=== PATIENT | female | born 1940 | race Caucasian/White ===

== ENCOUNTER 2017-12-18 08:51 | Outpatient (CLI) | payer MEDICARE | END 2017-12-18 08:52 | disposition EMS.NT | LOC: EMS 08:51 | PROVIDERS: ATTEND Surgery | DX: R03.1 Nonspecific low blood-pressure reading (principal) ==

== ENCOUNTER 2018-04-18 18:21 | Emergency (ER) | payer MEDICARE ==
[2018-04-18 18:44] VITALS: BP 126/60
[2018-04-18] MEDS ORDERED: BUFFERED LIDOCAINE 10 ML SYRINGE SUBQ ONE (18:56)
[2018-04-18] MEDS ORDERED: TETANUS/DIPHTHERIA/PERTUSSIS 0.5 ML SYRINGE IM ONE (19:15)
--- NOTE | 2018-04-18 19:15 | ED Physician Documentation ---
PD HPI UPPER EXT INJURY - Stated complaint Stated Complaint: FINGER PX - Chief complaint Chief Complaint: Laceration - History obtained from History obtained from: Patient - History of Present Illness Location: Left (77-year-old woman with unknown tetanus status was cleaning at home and got a splinter in the distal left pinky finger. Not a piece of glass in contrast the nurse's notes.) Review of Systems Constitutional: reports: Reviewed and negative Cardiac: reports: Reviewed and negative Respiratory: reports: Reviewed and negative PD PAST MEDICAL HISTORY - Past Medical History Cardiovascular: Hypertension Psych: Bipolar disorder Musculoskeletal: Other - Past Surgical History Past Surgical History: Yes HEENT: Tonsil/Adenoidectomy - Present Medications Home Medications: Ambulatory Orders Medication Instructions Recorded Confirmed Lisinopril 20 mg PO DAILY 10/11/13 01/25/18 - Allergies Allergies/Adverse Reactions: Allergies Allergy/AdvReac Type Severity Reaction Status Date / Time Sulfa (Sulfonamide Allergy Unknown Rash Verified 04/18/18 18:45 Antibiotics) promethazine HCl * Allergy i get Verified 04/18/18 18:45 [From Phenergan] maudlin codeine AdvReac Unknown Hallucinati Verified 04/18/18 18:45 ons erythromycin base AdvReac Unknown Nausea Verified 04/18/18 18:45 [Erythromycin Base] tetracycline AdvReac Unknown Cramps Verified 04/18/18 18:45 sulfisoxazole AdvReac Teeth pain Verified 04/18/18 18:45 [From Gantrisin] and urine green sulfisoxazole acetyl * AdvReac Unknown Verified 04/18/18 18:45 [From Gantrisin] - Social History Does the pt smoke?: No Smoking Status: Never smoker Does the pt drink ETOH?: No Does the pt have substance abuse?: No - Immunizations Immunizations are current?: No - POLST Patient has POLST: No PD ED PE NORMAL - Vitals Vital signs reviewed: Yes - General General: Alert and oriented X 3, No acute distress - Extremities Extremities: Other (In the distal pulp of the left fifth finger there is a palpable splinter that is tender.) - Neuro Neuro: Alert and oriented X 3, Normal speech Results - Vitals Vitals: Vital Signs - 24 hr 04/18/18 18:40 Temperature 37 C Heart Rate 73 Respiratory 14 Rate Blood Pressure 126/60 O2 Saturation 96 Oxygen O2 Source Room air Procedures - FB removal FB location: Subcutaneous FB removal preparation: Local anesthesia-specify (Left fifth finger was anesthetized with a digital block with buffered lidocaine, then sterilely prepped and draped. A tiny incision was made over the pulp and the splinter easily identified and removed using forceps I think in its entirety.) PD MEDICAL DECISION MAKING - Sepsis Event Vital Signs: Vital Signs - 24 hr 04/18/18 18:40 Temperature 37 C Heart Rate 73 Respiratory 14 Rate Blood Pressure 126/60 O2 Saturation 96 Oxygen O2 Source Room air Departure - Departure Disposition: 01 Home, Self Care Clinical Impression: Open wound with foreign body Condition: Good Record reviewed to determine appropriate education?: Yes Instructions: ED Foreign Body Splinter Removal
== END 2018-04-18 19:52 | disposition home or self-care (01) ==
LOC: ED 18:21
DX: S60.457A Superficial foreign body of left little finger, initial encounter (principal); W45.8XXA Other foreign body or object entering through skin, initial encounter; Y93.E9 Activity, other interior property and clothing maintenance; Y92.009 Unspecified place in unspecified non-institutional (private) residence as the place of occurrence of the external cause; Z23 Encounter for immunization; I10 Essential (primary) hypertension
CPT/HCPCS: 10120; 90471; 99282; 99283

== ENCOUNTER 2020-03-15 12:11 | Outpatient (CLI) | payer MEDICARE ==
--- NOTE | 2020-03-15 12:34 | XRAY Report ---
PROCEDURE: Hand 3 View LT INDICATIONS: L HAND PX AFTER FALL TECHNIQUE: 3 views of the hand(s) acquired. COMPARISON: None FINDINGS: Bones: No fractures or dislocations. No suspicious bony lesions. Soft tissues: No suspicious soft tissue calcifications. IMPRESSION: No acute left hand fracture or dislocation. Reviewed by: Ajay Dao MD on 03/15/2020 11:33 AM KATHY Approved by: Ajay Dao MD on 03/15/2020 11:33 AM [place] Station ID: [id number]
== END 2020-03-15 12:12 | disposition home or self-care (01) ==
LOC: DI 12:11
PROVIDERS: ATTEND Internal Medicine
DX: M79.642 Pain in left hand (principal)

== ENCOUNTER 2020-04-15 09:52 | Outpatient (CLI) | payer MEDICARE ==
[2020-04-15] MEDS ORDERED: IOVERSOL 320 50 ML VIAL ONE (10:10)
[2020-04-15] MEDS ORDERED: IOVERSOL 320 100 ML VIAL IVP ONE (10:10)
--- NOTE | 2020-04-15 14:13 | CT Report ---
PROCEDURE: Abdomen/Pelvis W INDICATIONS: MALIGNANT NEOPLASM OF ASCENDING COLON CONTRAST: IV CONTRAST: Optiray 320 ml: 100 PO CONTRAST: Optiray 320 ml50 TECHNIQUE: After the administration of contrast, 5 mm thick sections acquired from the diaphragms to the sym physis. 5 mm thick coronal and sagittal reformats were acquired. For radiation dose reduction, the following was used: automated exposure control, adjustment of mA and/or kV according to patient size . COMPARISON: None. FINDINGS: Image quality: Excellent. ABDOMEN: Lung bases: Lung bases are clear. Heart size is normal. There is a small diaphragmatic defect at t he posterior right hemidiaphragm allowing a small amount of fat from the adjacent retroperitoneum of the abdomen to extend into the inferior aspect of the right pleural space, without evidence of incarc eration or strangulation. Solid organs: Liver and spleen are normal in size and enhancement. There are several scattered hepa tic water density simple cysts. No solid mass lesion within the liver is found. Gallbladder appears n ormal Biliary system is non dilated. Pancreas enhances normally. No adrenal nodules. Kidneys demo nstrate normal size and enhancement, without hydronephrosis. Peritoneum and bowel: Bowel loops demonstrate normal wall thickness and caliber. No free fluid or a ir. Nodes and vessels: No retroperitoneal or mesenteric adenopathy by size criteria. Aorta and inferior vena cava are normal in size. Miscellaneous: No ventral hernias. PELVIS: Genitourinary: Bladder wall thickness is normal. Miscellaneous: No inguinal hernias or adenopathy. Bones: No suspicious bony lesions. No vertebral body compression fractures. IMPRESSION: No evidence of metastatic disease. Several small water density hepatic cysts are inciden tally noted. The colonic neoplasm is reported to be centered within the ascending colon, but cannot b e identified in this area by CT scanning. No regional or distant adenopathy is found. Reviewed by: Raj Simental MD on 04/15/2020 2:12 PM PDT Approved by: Raj Simental MD on 04/15/2020 2:12 PM PDT Station ID: [id number]
--- NOTE | 2020-04-15 14:16 | CT Report ---
PROCEDURE: CHEST W INDICATIONS: MALIGNANT NEOPLASM OF ASCENDING COLON CONTRAST: IV CONTRAST: Optiray 320 ml: 100 PO CONTRAST: Optiray 320 ml50 TECHNIQUE: After the administration of intravenous contrast, 5 mm thick sections acquired from the pulmonary api shantel to the posterior costophrenic angles. 7 mm thick coronal MIP reformats were acquired. For radia tion dose reduction, the following was used: automated exposure control, adjustment of mA and/or kV according to patient size. COMPARISON: None. FINDINGS: Image quality: Excellent. Lungs and pleura: No acute air space opacities. No pleural effusions or pneumothorax. Central and peripheral airways are patent and normal in caliber. Mediastinum: Heart size is normal. No pericardial effusion. No mediastinal or hilar adenopathy by size criteria. Thoracic aorta and central pulmonary arteries are normal in size. Esophagus is mary lou l in caliber. No hiatal hernia. Bones and chest wall: No suspicious bony lesions. No vertebral body compression fractures. No axil stacy or supraclavicular adenopathy by size criteria. Thyroid gland appears normal. Abdomen: Visualized upper abdominal solid organs appear normal. Upper abdominal bowel loops are nor mal in caliber. IMPRESSION: No sign of metastatic disease related to reported ascending: Malignant neoplasm. No adenopathy is see n. Please also refer to dedicated abdominal/pelvic CT report from same day. Reviewed by: Raj Simental MD on 04/15/2020 2:15 PM PDT Approved by: Raj Simental MD on 04/15/2020 2:15 PM PDT Station ID: [id number]
[2020-04-15] MEDS: IOVERSOL 320 100 ML VIAL IVP ONE (16:58)
[2020-04-15] MEDS: IOVERSOL 320 50 ML VIAL PO ONE (16:58)
== END 2020-04-15 09:53 | disposition home or self-care (01) ==
LOC: DI 09:52
PROVIDERS: ATTEND Internal Medicine Hematology & Oncology
DX: K76.89 Other specified diseases of liver (principal)
CPT/HCPCS: 71260; 74177; Q9967

== ENCOUNTER 2020-09-27 16:25 | Emergency (ER) | payer MEDICARE ==
[2020-09-27] MEDS ORDERED: SODIUM CHLORIDE 0.9% 1,000 ML IV STA (16:38)
--- NOTE | 2020-09-27 16:40 | ED Physician Documentation ---
PD HPI ABD PAIN - Stated complaint Stated Complaint: ABD/PELVIC PX - Chief complaint Chief Complaint: Abd Pain - History obtained from History obtained from: Patient - Additional information Additional information: This 79-year-old woman has a history of extensive abdominal surgeries, she had a penetrating injury with a steak at age 9, has had sterilization, fibroids removed, localized colon cancer removed, and several hernia repairs. For the last week and a half she has had a terrible productive cough and today she feels profoundly fatigued and has pelvic pain worse with bending and twisting. She has loose stools and urinary frequency but she was sent from the office where reportedly a urinalysis was done and normal. She denies fevers or nausea. 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 It is wearing her out. I offered to have a public health social worker talk with her about respite care but she did not think that would be helpful. Review of Systems Ten Systems: 10 systems reviewed and negative Constitutional: denies: Fever, Chills Cardiac: denies: Chest pain / pressure, Palpitations Respiratory: reports: Cough. denies: Dyspnea PD PAST MEDICAL HISTORY - Past Medical History Cardiovascular: Hypertension Psych: Bipolar disorder Musculoskeletal: Other - Past Surgical History Past Surgical History: Yes HEENT: Tonsil/Adenoidectomy - Present Medications Home Medications: Ambulatory Orders Medication Instructions Recorded Confirmed Loratadine 5 mg PO DAILY 05/17/18 09/27/20 - Allergies Allergies/Adverse Reactions: Allergies Allergy/AdvReac Type Severity Reaction Status Date / Time Sulfa (Sulfonamide Allergy Unknown Rash Verified 09/27/20 16:59 Antibiotics) promethazine HCl * Allergy i get Verified 09/27/20 16:59 [From Phenergan] maudlin codeine AdvReac Unknown Hallucinati Verified 09/27/20 16:59 ons erythromycin base AdvReac Unknown Nausea Verified 09/27/20 16:59 [Erythromycin Base] tetracycline AdvReac Unknown Cramps Verified 09/27/20 16:59 sulfisoxazole AdvReac Teeth pain Verified 09/27/20 16:59 [From Gantrisin] and urine green sulfisoxazole acetyl * AdvReac Unknown Verified 09/27/20 16:59 [From Gantrisin] - Social History Does the pt smoke?: No Smoking Status: Never smoker Does the pt drink ETOH?: No Does the pt have substance abuse?: No - Immunizations Immunizations are current?: No - POLST Patient has POLST: No PD ED PE NORMAL - Vitals Vital signs reviewed: Yes - General General: Alert and oriented X 3, No acute distress - HEENT HEENT: PERRL, EOMI - Neck Neck: Supple, no meningeal sign, No bony TTP - Cardiac Cardiac: RRR, No murmur - Respiratory Respiratory: No respiratory distress, Clear bilaterally - Abdomen Abdomen: Other (Moderate suprapubic tenderness without surgical signs, soft.) - Back Back: No CVA TTP, No spinal TTP - Derm Derm: Normal color, Warm and dry - Extremities Extremities: No edema, No calf tenderness / cord - Neuro Neuro: Alert and oriented X 3, Normal speech Results - Vitals Vitals: Vital Signs - 24 hr 09/27/20 09/27/20 16:30 16:55 Temperature 36.6 C Heart Rate 65 63 Respiratory 16 16 Rate Blood Pressure 170/87 H 174/87 H O2 Saturation 97 96 Oxygen O2 Source Nasal cannula - Labs Labs: Laboratory Tests 09/27/20 09/27/20 09/27/20 16:46 16:52 16:52 WBC 8.1 RBC 4.43 Hgb 14.5 Hct 43.2 MCV 97.5 MCH 32.7 H MCHC 33.6 RDW 13.0 Plt Count 307 MPV 10.2 Neut # (Auto) 4.8 Lymph # (Auto) 2.5 Arroyo # (Auto) 0.5 Eos # (Auto) 0.2 Baso # (Auto) 0.0 Absolute Nucleated RBC 0.00 Nucleated RBC % 0.0 Sodium 139 Potassium 4.1 Chloride 100 L Carbon Dioxide 27 Anion Gap 12.0 BUN 21 H Creatinine 0.8 Estimated GFR (MDRD) 69 L Glucose 94 Calcium 9.3 Total Bilirubin 0.5 AST 24 ALT 20 Alkaline Phosphatase 70 Total Protein 7.2 Albumin 4.2 Globulin 3.0 Albumin/Globulin Ratio 1.4 Lipase 26 Urine Color YELLOW Urine Clarity CLEAR Urine pH 6.5 Ur Specific [place] 1.010 Urine Protein NEGATIVE Urine Glucose (UA) NEGATIVE Urine Ketones NEGATIVE Urine Occult Blood TRACE-INTA Urine Nitrite NEGATIVE Urine Bilirubin NEGATIVE Urine Urobilinogen 0.2 (NORMAL) Ur Leukocyte Esterase TRACE H Urine RBC 0-5 Urine WBC 0-3 Ur Squamous Epith Cells MOD Squamous H Urine Bacteria Rare Ur Microscopic Review INDICATED Urine Culture Comments NOT INDICATED PD MEDICAL DECISION MAKING - ED course ED course: 79-year-old presents with pelvic pain, also a cough. Chest x-ray showed old granulomatous disease, nothing acute. CT of the belly demonstrates mild uncomplicated distal descending diverticulitis. I discussed the current AGA feliciano delines with the patient and she declined antibiotics. Departure - Departure Disposition: Home, Self Care Clinical Impression: Diverticulitis of gastrointestinal tract Condition: Good Record reviewed to determine appropriate education?: Yes Instructions: ED Diverticulitis, Diet Low Residue Comments: Return if you worsen, follow-up with your physician Wednesday for recheck.
[2020-09-27] MEDS ORDERED: IOVERSOL 320 100 ML VIAL IVP ONE ×2 (16:58→17:54)
[2020-09-27 17:00] LABS: BASOPHILS % (AUTO) 0.5 %; EOSINOPHILS # (AUTO) 0.2 10^3/uL (0.0-0.7); HGB - HEMOGLOBIN 14.5 g/dL (12.0-16.0); LYMPHOCYTES # (AUTO) 2.5 10^3/uL (1.5-3.5); LYMPHOCYTES % (AUTO) 30.8 %; MEAN CORPUSCULAR HEMOGLOBIN 32.7 pg (27.0-31.0); MEAN CORPUSCULAR HGB CONC 33.6 g/dL (32.0-36.0); MEAN CORPUSCULAR VOLUME 97.5 fL (81.0-99.0); MEAN PLATELET VOLUME 10.2 fL (7.9-10.8); MONOCYTES # (AUTO) 0.5 10^3/uL (0.0-1.0); MONOCYTES % (AUTO) 6.4 %; NEUTROPHILS # (AUTO) 4.8 10^3/uL (1.5-6.6); NEUTROPHILS % (AUTO) 59.9 %; PLT - PLATELET COUNT 307 10^3/uL (130-450); RED BLOOD COUNT 4.43 10^6/uL (4.20-5.40); WHITE BLOOD COUNT 8.1 x10^3/uL (4.8-10.8)
[2020-09-27 17:15] LABS: ALBUMIN 4.2 g/dL (3.2-5.5); ALBUMIN/GLOBULIN RATIO 1.4 (1.0-2.2); BILIRUBIN,TOTAL 0.5 mg/dL (0.2-1.0); CALCIUM 9.3 mg/dL (8.5-10.3); CREATININE 0.8 mg/dL (0.4-1.0); TOTAL PROTEIN 7.2 g/dL (6.7-8.2)
[2020-09-27 17:46] LABS: BILIRUBIN,URINE NEGATIVE (NEGATIVE); GLUCOSE, URINE (UA) NEGATIVE (NEGATIVE); KETONES,URINE (UA) NEGATIVE (NEGATIVE); LEUKOCYTE ESTERASE, URINE TRACE (NEGATIVE); NITRITE,URINE NEGATIVE (NEGATIVE); OCCULT BLOOD,URINE TRACE-INTA (NEGATIVE); PH,URINE 6.5 PH (5.0-7.5); PROTEIN,URINE NEGATIVE (NEGATIVE); UROBILINOGEN,URINE 0.2 (NORMAL) E.U./dL (NORMAL)
[2020-09-27 17:47] LABS: CLARITY,URINE CLEAR (CLEAR)
[2020-09-27 18:00] LABS: BACTERIA,URINE Rare /HPF (None Seen); RBC,URINE 0-5 /HPF (0-5); SQUAMOUS EPITHELIAL CELL,UR MOD Squamous (<= Few)
--- NOTE | 2020-09-27 18:08 | CT Report ---
PROCEDURE: Abdomen/Pelvis W INDICATIONS: LLQ Abdominal pain, diverticulitis suspected CONTRAST: IV CONTRAST: Optiray 320 ml: 100 PO CONTRAST: *NO PO CONTRAST TECHNIQUE: After the administration of IV and oral contrast, 5 mm thick sections acquired from the diaphragms to the symphysis. 5 mm thick coronal and sagittal reformats were acquired. For radiation dose reducti on, the following was used: automated exposure control, adjustment of mA and/or kV according to regan ent size. COMPARISON: 04/15/2020 FINDINGS: Image quality: Excellent. ABDOMEN: Lung bases: Lung bases demonstrate mild bibasilar atelectasis.. Partially imaged calcified right hi lar granuloma. Coarse right lower lobe calcification consistent with granulomatous change. Heart size is normal. Coarse mitral annular calcification. Solid organs: Liver and spleen are normal in size and enhancement. Occasional hepatic cysts are pre sent. Several scattered calcified granulomas in the spleen. Gallbladder is partially decompressed. B iliary system is non dilated. Pancreas enhances normally. No adrenal nodules. Kidneys demonstrate normal size and enhancement, without hydronephrosis. Peritoneum and bowel: There is wall thickening, spasm, and several diverticula present in the sigmoi d colon. Numerous diverticula are also seen in the distal descending colon. There are only mild peric olonic inflammatory changes and no extraluminal gas. Ileocolonic anastomosis in the right upper quadr ant. Bowel loops otherwise have normal wall thickness and caliber. No free fluid or air. Nodes and vessels: No retroperitoneal or mesenteric adenopathy by size criteria. Aorta and inferior vena cava are normal in size. Coarse calcification at the branch artery origins of the abdominal ao rta. Miscellaneous: No ventral hernias. PELVIS: Genitourinary: Bladder wall thickness is normal. Uterus and ovaries are normal. Miscellaneous: No inguinal hernias or adenopathy. Bones: No suspicious bony lesions. Moderate left and mild right hip degenerative change. Degeneratio n at the pubic symphysis. No vertebral body compression fractures. IMPRESSION: 1. Mild, uncomplicated distal descending and proximal sigmoid colon diverticulitis. 2. Interval right hemicolectomy. Reviewed by: Donna Arboleda MD on 09/27/2020 6:06 PM PST Approved by: Donna Arboleda MD on 09/27/2020 6:06 PM PST Station ID: [id number]
--- NOTE | 2020-09-27 18:11 | XRAY Report ---
PROCEDURE: Chest 2 View X-Ray INDICATIONS: cough TECHNIQUE: 2 view(s) of the chest. COMPARISON: None. FINDINGS: Surgical changes and devices: None. Lungs and pleura: No pleural effusions or pneumothorax. Coarse calcified right midlung granuloma. L ungs are otherwise clear. Mediastinum: Mediastinal contours are normal. Calcified right hilar lymph nodes. Heart size is mary lou l. Bones and chest wall: No suspicious bony abnormalities. Soft tissues appear unremarkable. IMPRESSION: 1. No acute process. 2. Evidence of remote granulomatous disease. Reviewed by: Donna Arboleda MD on 09/27/2020 6:10 PM PST Approved by: Donna Arboleda MD on 09/27/2020 6:10 PM PST Station ID: [id number]
[2020-09-27 18:32] VITALS: BP 180/80
== END 2020-09-27 19:02 | disposition home or self-care (01) ==
LOC: ED 16:25
DX: K57.32 Diverticulitis of large intestine without perforation or abscess without bleeding (principal)
CPT/HCPCS: 36415; 71046; 74177; 80053; 81001; 83690; 85025; 99284; Q9967; 81003; 87086

== ENCOUNTER 2021-03-14 10:56 | Day surgery (SDC) | payer MEDICARE ==
[2021-03-14] MEDS ORDERED: LACTATED RINGERS 1,000 ML IV ONE ×2 (11:14→13:28)
--- NOTE | 2021-03-14 12:46 | HISTORY & PHYSICAL EXAMINATION ---
Chief Complaint - Chief Complaint Chief Complaint: History of colon cancer History of Present Illness - History Obtained From Records Reviewed: yes History obtained from: pt Exam Limitations: none - History of Present Illness HPI Comment/Other: History of right colectomy for colon cancer several years ago. Here for surveillance colonoscopy. History - Past Medical History Cardiovascular: reports: Hypertension, [place] Respiratory: reports: Asthma Endocrine/Autoimmune: reports: None GI: reports: GERD, Diverticulitis, Other : reports: None HEENT: reports: Chronic vision loss, Glaucoma, Chronic hearing loss Psych: reports: Anxiety Musculoskeletal: reports: Osteoarthritis Derm: reports: None MRSA Hx?: No - Past Surgical History General: reports: Bowel surgery, Hiatal hernia repair HEENT: reports: Tonsil/Adenoidectomy - POLST Patient has POLST: No Meds/Allgy - Home Medications Home Medications: Ambulatory Orders Medication Instructions Recorded Confirmed Loratadine 10 mg PO DAILY 05/17/18 03/14/21 Lisinopril [Zestril] 5 mg PO DAILY 03/14/21 03/14/21 - Allergies Allergies/Adverse Reactions: Allergies Allergy/AdvReac Type Severity Reaction Status Date / Time Sulfa (Sulfonamide Allergy Unknown Rash Verified 03/14/21 11:39 Antibiotics) promethazine HCl * Allergy i get Verified 03/14/21 11:39 [From Phenergan] maudlin codeine AdvReac Unknown Hallucinati Verified 03/14/21 11:39 ons erythromycin base AdvReac Unknown Nausea Verified 03/14/21 11:39 [Erythromycin Base] tetracycline AdvReac Unknown Cramps Verified 03/14/21 11:39 sulfisoxazole AdvReac Teeth pain Verified 03/14/21 11:39 [From Gantrisin] and urine green sulfisoxazole acetyl * AdvReac Unknown Verified 03/14/21 11:39 [From Gantrisin] Review of Systems - Other Findings Other Findings: 10 pt ros as above otherwise unremarkable Exam - Vital Signs Reviewed Vital Signs: Yes Vital Signs: Vital Signs x48h Temp Pulse Resp BP Pulse Ox 03/14/21 11:15 36.4 C L 64 16 140/77 H 96 - Physical Exam General Appearance: positive: No acute distress, Alert Eyes Bilateral: positive: PERRL, EOMI ENT: positive: No signs of dehydration Neck: positive: No JVD Respiratory: positive: No respiratory distress, Breath sounds nml Cardiovascular: positive: Regular rate & rhythm Abdomen: positive: Non-tender, No distention Neurologic/Psychiatric: positive: Oriented x3 Conclusion/Plan - Problem List (1) History of colon cancer Conclusion/Plan: Plan surveillance colonoscopy. parq held and consent obtained
[2021-03-14] MEDS ORDERED: MIDAZOLAM 2 MG/2 ML VIAL ONE ×2 (12:51→12:52)
[2021-03-14] MEDS ORDERED: fentaNYL 250 MCG/5 ML VIAL ONE (12:52)
[2021-03-14 13:40] VITALS: BP 94/61
== END 2021-03-14 10:57 | disposition home or self-care (01) ==
LOC: SDS 10:56
PROVIDERS: ATTEND Surgery
PROC: 0DBN8ZX Excision of Sigmoid Colon, Via Natural or Artificial Opening Endoscopic, Diagnostic (ICD-10-PCS; principal; 2021-03-14 12:00)
DX: Z08 Encounter for follow-up examination after completed treatment for malignant neoplasm (principal); Z85.038 Personal history of other malignant neoplasm of large intestine; K57.30 Diverticulosis of large intestine without perforation or abscess without bleeding; Z90.49 Acquired absence of other specified parts of digestive tract; I10 Essential (primary) hypertension; H40.9 Unspecified glaucoma; H91.90 Unspecified hearing loss, unspecified ear; I25.2 Old myocardial infarction; Z79.899 Other long term (current) drug therapy
CPT/HCPCS: 45380; J3010; J7120

== ENCOUNTER 2021-03-31 21:45 | Emergency (ER) | payer MEDICARE ==
--- NOTE | 2021-03-31 22:12 | ED Physician Documentation ---
PD HPI URI - Stated complaint Stated Complaint: SORE THROAT - Chief complaint Chief Complaint: General - History obtained from History obtained from: Patient - History of Present Illness Timing - onset: Yesterday Timing duration: Days (1-2) Timing details: Abrupt onset, Still present Associated symptoms: Nasal congestion, Sore throat. 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 Patient now has a sore throat and some congestion. Her employer wants her tested for Covid in order to return to work.). No: Unimmunized (She was vaccinated for Covid with the second dose in September.) Similar symptoms before: Has not had sx before Recently seen: Not recently seen Review of Systems Constitutional: denies: Fever, Chills, Myalgias Nose: reports: Congestion Throat: reports: Sore throat Respiratory: denies: Cough GI: denies: Nausea, Vomiting, Diarrhea Skin: denies: Rash Neurologic: denies: Headache PD PAST MEDICAL HISTORY - Past Medical History Cardiovascular: Hypertension, [place] Respiratory: Asthma Endocrine/Autoimmune: None GI: GERD, Diverticulitis, Other : None HEENT: Chronic vision loss, Glaucoma, Chronic hearing loss Psych: Anxiety Musculoskeletal: Osteoarthritis Derm: None - Past Surgical History Past Surgical History: Yes General: Bowel surgery, Hiatal hernia repair HEENT: Tonsil/Adenoidectomy - Present Medications Home Medications: Ambulatory Orders Medication Instructions Recorded Confirmed Loratadine 10 mg PO DAILY 05/17/18 03/14/21 Lisinopril [Zestril] 5 mg PO DAILY 03/14/21 03/14/21 - Allergies Allergies/Adverse Reactions: Allergies Allergy/AdvReac Type Severity Reaction Status Date / Time Sulfa (Sulfonamide Allergy Unknown Rash Verified 03/31/21 22:00 Antibiotics) promethazine HCl * Allergy i get Verified 03/31/21 22:00 [From Phenergan] maudlin codeine AdvReac Unknown Hallucinati Verified 03/31/21 22:00 ons erythromycin base AdvReac Unknown Nausea Verified 03/31/21 22:00 [Erythromycin Base] tetracycline AdvReac Unknown Cramps Verified 03/31/21 22:00 sulfisoxazole AdvReac Teeth pain Verified 03/31/21 22:00 [From Gantrisin] and urine green sulfisoxazole acetyl * AdvReac Unknown Verified 03/31/21 22:00 [From Gantrisin] - Social History Does the pt smoke?: No Smoking Status: Never smoker Does the pt drink ETOH?: No Does the pt have substance abuse?: No - Immunizations Immunizations are current?: No - POLST Patient has POLST: No PD ED PE NORMAL - Vitals Vital signs reviewed: Yes - General General: Alert and oriented X 3, No acute distress, Well developed/nourished - HEENT HEENT: Ears normal, Moist mucous membranes, Pharynx benign - Neck Neck: Supple, no meningeal sign, No adenopathy - Cardiac Cardiac: RRR, No murmur - Respiratory Respiratory: Clear bilaterally - Derm Derm: Normal color, Warm and dry - Neuro Neuro: Alert and oriented X 3, No motor deficit, Normal speech Results - Vitals Vitals: Vital Signs - 24 hr 03/31/21 22:01 Temperature 36.6 C Heart Rate 69 Respiratory 116 H Rate O2 Saturation 97 Oxygen O2 Source Room air PD MEDICAL DECISION MAKING - ED course Complexity details: considered differential (does not look bacterial. presume viral. Wants COVID testing in order to return to work. Test obtained. ), d/w patient Departure - Departure Disposition: 01 Home, Self Care Clinical Impression: Sore throat Condition: Stable Record reviewed to determine appropriate education?: Yes Instructions: ED Pharyngitis Viral Comments: You have a Covid test pending. You need to self quarantine until the result is done and negative. Do not leave your house. Do not get near anybody. The results should be done in 48 to 72 hours, but sometimes longer. We will call with a positive result, the fastest way to get a negative result for confirmation though is to go to the hospital website at [email or web address], click on the my [facility] tab and sign up for the patient portal. If any friends or family get sick and would like to have a Covid test done, but do not have signs or symptoms that would necessitate being hospitalized, we encourage testing through our coronavirus swabbing station, call [phone] to schedule an appointment. Off work tomorrow and the next day if needed. Hopefully the results for your Covid test will be back tomorrow. You can find it through the patient portal. Meanwhile we will presume a viral type illness or possibly allergies. No indication for antibiotics at this point. Forms: Activity restrictions Discharge Date/Time: 03/31/21 22:24
== END 2021-03-31 22:24 | disposition home or self-care (01) ==
LOC: ED 21:45
DX: J02.9 Acute pharyngitis, unspecified (principal); R09.81 Nasal congestion; Z20.822 Contact with and (suspected) exposure to COVID-19; I10 Essential (primary) hypertension
CPT/HCPCS: 99283; U0004

== ENCOUNTER 2021-04-06 21:26 | Emergency (ER) | payer MEDICARE ==
[2021-04-06 21:36] VITALS: BP 134/77
--- NOTE | 2021-04-06 21:51 | ED Physician Documentation ---
History of Present Illness - Stated complaint Stated Complaint: DIARRHEA, COUGH, HEADACHE - Chief complaint Chief Complaint: Abd Pain - History obtained from History obtained from: Patient - Additonal information Additional information: 80-year-old woman with past medical history of high blood pressure and gastroesophageal reflux disease, presents with left frontal headache for the past 2 days, constant for the past 4 days that is nonproductive, as well as rhinorrhea, nasal congestion, sore throat. Patient states that she is here to get a second Covid test that she can go back to work. denies cp, soa, hemoptysis, fver. Review of Systems Ten Systems: 10 systems reviewed and negative Constitutional: reports: Fatigue. denies: Fever, Chills Nose: reports: Rhinorrhea / runny nose, Congestion Throat: reports: Sore throat Cardiac: denies: Chest pain / pressure Respiratory: reports: Cough (nonproductive). denies: Dyspnea GI: denies: Abdominal Pain, Nausea, Vomiting PD PAST MEDICAL HISTORY - Past Medical History Cardiovascular: Hypertension, [place] Respiratory: Asthma Endocrine/Autoimmune: None GI: GERD, Diverticulitis, Other : None HEENT: Chronic vision loss, Glaucoma, Chronic hearing loss Psych: Anxiety Musculoskeletal: Osteoarthritis Derm: None - Past Surgical History Past Surgical History: Yes General: Bowel surgery, Hiatal hernia repair HEENT: Tonsil/Adenoidectomy - Present Medications Home Medications: Ambulatory Orders Medication Instructions Recorded Confirmed Loratadine 10 mg PO DAILY 05/17/18 03/14/21 Lisinopril [Zestril] 5 mg PO DAILY 03/14/21 03/14/21 - Allergies Allergies/Adverse Reactions: Allergies Allergy/AdvReac Type Severity Reaction Status Date / Time Sulfa (Sulfonamide Allergy Unknown Rash Verified 04/06/21 21:36 Antibiotics) promethazine HCl * Allergy i get Verified 04/06/21 21:36 [From Phenergan] maudlin codeine AdvReac Unknown Hallucinati Verified 04/06/21 21:36 ons erythromycin base AdvReac Unknown Nausea Verified 04/06/21 21:36 [Erythromycin Base] tetracycline AdvReac Unknown Cramps Verified 04/06/21 21:36 sulfisoxazole AdvReac Teeth pain Verified 04/06/21 21:36 [From Gantrisin] and urine green sulfisoxazole acetyl * AdvReac Unknown Verified 04/06/21 21:36 [From Gankrunalisin] - Social History Does the pt smoke?: No Smoking Status: Never smoker Does the pt drink ETOH?: No Does the pt have substance abuse?: No - Immunizations Immunizations are current?: No - POLST Patient has POLST: No PD ED PE NORMAL - Vitals Vital signs reviewed: Yes - General General: Alert and oriented X 3, No acute distress, Well developed/nourished - HEENT HEENT: Atraumatic, PERRL, EOMI, Ears normal, Moist mucous membranes, Pharynx benign, Other (Mild bilateral nasal congestion) - Neck Neck: Supple, no meningeal sign - Cardiac Cardiac: RRR - Respiratory Respiratory: No respiratory distress, Clear bilaterally - Derm Derm: Normal color, Warm and dry - Extremities Extremities: No deformity - Neuro Neuro: Alert and oriented X 3 - Psych Psych: Normal mood, Normal affect Results - Vitals Vitals: Vital Signs - 24 hr 04/06/21 04/06/21 21:31 21:59 Temperature 36.5 C Heart Rate 77 Respiratory 18 16 Rate Blood Pressure 134/77 H O2 Saturation 96 Oxygen O2 Source Room air PD MEDICAL DECISION MAKING - ED course ED course: 80-year-old woman presents requesting second Covid test. She appears to have a mild viral upper respiratory infection without any fever or lower respiratory symptoms. Covid test provided. Return precautions given. Patient will follow up with her primary doctor. Departure - Departure Disposition: 01 Home, Self Care Clinical Impression: Viral URI with cough Condition: Good Instructions: ED Viral Syndrome Comments: You were seen in the emergency department for a viral upper respiratory infection. Is return to the emergency department if you start to have temperature higher than 100.4, blood in your cough, shortness of breath, chest pain, or any other new or worsening symptoms. A second Covid test was performed today and should result in 48 to 72 hours. You can view the results on your patient health portal. Please follow up with your primary doctor. Discharge Date/Time: 04/06/21 22:02
== END 2021-04-06 22:02 | disposition home or self-care (01) ==
LOC: ED 21:26
DX: U07.1 COVID-19 (principal); J06.9 Acute upper respiratory infection, unspecified; I10 Essential (primary) hypertension
CPT/HCPCS: 99283; 99284; U0004

== ENCOUNTER 2021-06-01 12:48 | Emergency (ER) | payer MEDICARE ==
[2021-06-01 12:58] VITALS: BP 148/76
--- NOTE | 2021-06-01 13:22 | ED Physician Documentation ---
History of Present Illness - Stated complaint Stated Complaint: FACE PRESSURE - Chief complaint Chief Complaint: Heent - History obtained from History obtained from: Patient - History of Present Illness Timing: How many days ago (2-3) Pain level max: 3 Pain level now: 3 - Additonal information Additional information: Patient is an 80-year-old female who presents to the emergency department complaining of nasal congestion, sinus pressure on the left side of her face to her left ear for the past 2 to 3 days. Nothing makes it better or worse. She tried a nasal spray without relief. No fevers. No chills. Occasional dry cough. She states that her left eye may be slightly blurry compared to the right, but she is unsure of this. No floaters. No flashes. Review of Systems Constitutional: denies: Fever, Chills GI: denies: Vomiting, Diarrhea Skin: denies: Rash Musculoskeletal: denies: Neck pain, Back pain Neurologic: denies: Focal weakness, Numbness, Head injury, LOC PD PAST MEDICAL HISTORY - Past Medical History Cardiovascular: Hypertension, [place] Respiratory: Asthma Endocrine/Autoimmune: None GI: GERD, Diverticulitis, Other : None HEENT: Chronic vision loss, Glaucoma, Chronic hearing loss Psych: Anxiety Musculoskeletal: Osteoarthritis Derm: None - Past Surgical History Past Surgical History: Yes General: Bowel surgery, Hiatal hernia repair HEENT: Tonsil/Adenoidectomy - Present Medications Home Medications: Ambulatory Orders Medication Instructions Recorded Confirmed Loratadine 10 mg PO DAILY 05/17/18 03/14/21 Lisinopril [Zestril] 5 mg PO DAILY 03/14/21 03/14/21 Fluticasone [Flonase] 1 sprays BOBO BID PRN #1 bottle 06/01/21 Oxymetazoline HCl [Afrin] 1 spray NS BID PRN #15 ml 06/01/21 - Allergies Allergies/Adverse Reactions: Allergies Allergy/AdvReac Type Severity Reaction Status Date / Time Sulfa (Sulfonamide Allergy Unknown Rash Verified 04/06/21 21:36 Antibiotics) promethazine HCl * Allergy i get Verified 04/06/21 21:36 [From Phenergan] maudlin codeine AdvReac Unknown Hallucinati Verified 04/06/21 21:36 ons erythromycin base AdvReac Unknown Nausea Verified 04/06/21 21:36 [Erythromycin Base] tetracycline AdvReac Unknown Cramps Verified 04/06/21 21:36 sulfisoxazole AdvReac Teeth pain Verified 04/06/21 21:36 [From Gantrisin] and urine green sulfisoxazole acetyl * AdvReac Unknown Verified 04/06/21 21:36 [From Gantrisin] - Social History Does the pt smoke?: No Smoking Status: Never smoker Does the pt drink ETOH?: No Does the pt have substance abuse?: No - Immunizations Immunizations are current?: No - POLST Patient has POLST: No PD ED PE NORMAL - Vitals Vital signs reviewed: Yes - General General: Alert and oriented X 3, No acute distress - HEENT HEENT: PERRL, EOMI, Ears normal, Moist mucous membranes, Pharynx benign, Other (Tender to palpation over the left frontal and maxillary sinuses) - Neck Neck: Supple, no meningeal sign, No adenopathy - Cardiac Cardiac: RRR - Respiratory Respiratory: No respiratory distress, Clear bilaterally - Abdomen Abdomen: Soft, Non tender, Non distended - Derm Derm: Warm and dry - Extremities Extremities: No edema, No calf tenderness / cord - Neuro Neuro: Alert and oriented X 3, process developer 2-12 intact, No motor deficit, No sensory deficit, Normal speech Results - Vitals Vitals: Vital Signs - 24 hr 06/01/21 12:51 Temperature 36.8 C Heart Rate 66 Respiratory 15 Rate Blood Pressure 148/76 H O2 Saturation 98 Oxygen O2 Source Room air PD MEDICAL DECISION MAKING - ED course Complexity details: considered differential, d/w patient ED course: Patient is an 80-year-old female with what appears to be sinus congestion and pressure. Likely early sinusitis. Normal vision. Normal extraocular movements. No signs of stroke. We will place on decongestants and have her follow-up with her doctor for further care. Patient counseled regarding signs and symptoms for which I believe and urgent re-evaluation would be necessary. Patient with good understanding of and agreement to plan and is comfortable going home at this time This document was made in part using voice recognition software. While efforts are made to proofread this document, sound alike and grammatical errors may occur. Departure - Departure Disposition: 01 Home, Self Care Clinical Impression: Sinusitis Qualifiers: Sinusitis location: unspecified location Chronicity: acute Recurrence: non- recurrent Qualified Code(s): J01.90 - Acute sinusitis, unspecified Condition: Good Instructions: ED Sinusitis No Abx Follow-Up: Kiarra Washburn MD [Primary Care Provider] - Within 1 week Prescriptions: Oxymetazoline HCl [Afrin] 1 spray NS BID PRN #15 ml PRN Reason: Nasal Congestion Fluticasone [Flonase] 1 sprays BOBO BID PRN #1 bottle PRN Reason: Nasal Congestion Comments: Your prescriptions were sent to [facility] in [place]. Please follow-up with your doctor for further care. We will try you on intranasal steroids and decongestants to see if we can get your sinuses to open and drain. If they do not drain or you develop fevers, you will likely need antibiotics. Discharge Date/Time: 06/01/21 13:31
== END 2021-06-01 13:31 | disposition home or self-care (01) ==
LOC: ED 12:48
DX: J01.10 Acute frontal sinusitis, unspecified (principal); J01.00 Acute maxillary sinusitis, unspecified
CPT/HCPCS: 99282; 99284

== ENCOUNTER 2021-08-25 07:58 | Outpatient (CLI) | payer MEDICARE ==
--- NOTE | 2021-08-25 08:53 | CT Report ---
PROCEDURE: CHEST WO INDICATIONS: COLON CA TECHNIQUE: Noncontrast 1mm axial images were acquired from the pulmonary apices to the posterior costophrenic an gles. Axial 5 mm soft tissue kernel reconstructions were performed as well as 8 mm axial MIP and cor onal and sagittal 5 mm reformations. For radiation dose reduction, the following was used: automate d exposure control, adjustment of mA and/or kV according to patient size. COMPARISON: Chest CT 04/15/2020 FINDINGS: Image quality: Excellent. Lungs and pleura: Calcified granulomas present in the right base, unchanged. In addition, there is a very minimal appearance of streaky basilar opacities, right greater than left with less prominent whe n compared to prior exam. Peripheral fibrotic changes are present within the lungs. No pleural effusi ons or pneumothorax. Central and peripheral airways are patent and normal in caliber. Mediastinum: Heart size is normal. No pericardial effusion. No mediastinal adenopathy by size crit eria. Calcified mediastinal and hilar lymph nodes are present, unchanged. Thoracic aorta and central pulmonary arteries are normal in size. Esophagus is normal in caliber. No hiatal hernia. Bones and chest wall: No suspicious bony lesions. No vertebral body compression fractures. No axil stacy or supraclavicular adenopathy by size criteria. The thyroid is normal in size and there are no incidental findings. Abdomen: Visualized upper abdominal solid organs and bowel loops appear normal in the absence of con trast. IMPRESSION: No evidence of metastatic disease. Calcified mediastinal/hilar lymph nodes as well as pulmonary nodules most consistent with prior granu lomatous exposure. Streaky opacities within the bases suggestive of scarring/atelectasis. CLINICAL RECOMMENDATION STATEMENTS: In patients <35 years with an ITN detected on CT, MRI, or extrathyroidal ultrasound, the Committee re commends further evaluation with dedicated thyroid ultrasound if the nodule is "e1 cm and has no susp icious imaging features, and if the patient has normal life expectancy. In patients "e35 years with an ITN detected on CT, MRI, or extrathyroidal ultrasound, the Committee r ecommends further evaluation with dedicated thyroid ultrasound if the nodule is "e1.5 cm and has no s uspicious imaging features, and if the patient has normal life expectancy. (ACR, 2014) Reviewed by: Laura Griffith MD on 08/25/2021 8:52 AM PST Approved by: Laura Griffith MD on 08/25/2021 8:52 AM PST Station ID: [id number]
--- NOTE | 2021-08-25 09:36 | CT Report ---
PROCEDURE: Abdomen/Pelvis WO INDICATIONS: COLON CA TECHNIQUE: Noncontrast 5 mm thick sections acquired from the diaphragms to the symphysis. 5 mm coronal and sagi ttal reformats were then performed. For radiation dose reduction, the following was used: automated exposure control, adjustment of mA and/or kV according to patient size. COMPARISON: CT abdomen pelvis 09/27/2020 FINDINGS: Image quality: Excellent. ABDOMEN: Lung bases: Lung bases demonstrate mild dependent changes versus scarring. Heart size is mildly enla rged. Solid organs: Liver and spleen are normal in size. Calcifications are present within the spleen, unc hanged Hepatic cysts are unchanged. Gallbladder is unremarkable Pancreas is normal in contours. No adrenal nodules. Kidneys are normal in size, without hydronephrosis or nephrolithiasis. Peritoneum and bowel: Unenhanced bowel loops demonstrate normal wall thickness and caliber. Scatter ed colonic diverticula are present without associated inflammatory change No free fluid or air. Surg ical changes reflecting right hemicolectomy are noted. Nodes and vessels: No retroperitoneal or mesenteric adenopathy by size criteria. Calcified retroperi toneal lymph nodes are again noted. Aorta and inferior vena cava are normal in caliber. Miscellaneous: No ventral hernias. Hiatal hernia is present. PELVIS: Genitourinary: Bladder wall thickness is normal. Miscellaneous: No inguinal hernias or adenopathy. Bones: No suspicious bony lesions. No vertebral body compression fractures. IMPRESSION: Stable interval exam compared to 09/27/2020 without evidence of recurrent or residual disease. Stable hepatic cysts. Calcified lymph nodes as well as splenic calcifications suggestive of prior granulomatous exposure. Diverticulosis. Reviewed by: Laura Griffith MD on 08/25/2021 9:35 AM PST Approved by: Laura Griffith MD on 08/25/2021 9:35 AM PST Station ID: [id number]
== END 2021-08-25 07:59 | disposition home or self-care (01) ==
LOC: DI 07:58
PROVIDERS: ATTEND Internal Medicine Hematology & Oncology
DX: Z08 Encounter for follow-up examination after completed treatment for malignant neoplasm (principal); Z85.038 Personal history of other malignant neoplasm of large intestine; K76.89 Other specified diseases of liver; K57.90 Diverticulosis of intestine, part unspecified, without perforation or abscess without bleeding

== ENCOUNTER 2021-10-05 12:33 | Emergency (ER) | payer MEDICARE ==
--- NOTE | 2021-10-05 12:51 | ED Physician Documentation ---
PD HPI HEAD INJURY - Stated complaint Stated Complaint: HEAD PX,FALL - Chief complaint Chief Complaint: Trauma Hd/Nk - History obtained from History obtained from: Patient - Additional information Additional information: An 80-year-old woman who ate some soup last night. The soup was marketed has having no added MSG and she is upset because it has hydrolyzed soy protein and some other ingredients that masked the true nature of it having MSG. She is highly allergic to MSG and she feels like she is all wobbly today because of eating the MSG and because of that she over step to step while going down the stairs this morning and fell backwards hitting her left elbow and the back of her head on the stairs. She had a mild headache which has resolved. She is mildly nauseous but has not vomited. The elbow hurts more than anything else. She also complains of some right second finger pain. She is not anticoagulated. Review of Systems Constitutional: reports: Reviewed and negative Eyes: reports: Reviewed and negative Ears: reports: Reviewed and negative Nose: reports: Reviewed and negative Throat: reports: Reviewed and negative Cardiac: reports: Reviewed and negative Respiratory: reports: Reviewed and negative PD PAST MEDICAL HISTORY - Past Medical History Cardiovascular: Hypertension, [place] Respiratory: Asthma Endocrine/Autoimmune: None GI: GERD, Diverticulitis, Other : None HEENT: Chronic vision loss, Glaucoma, Chronic hearing loss Psych: Anxiety Musculoskeletal: Osteoarthritis Derm: None - Past Surgical History Past Surgical History: Yes General: Bowel surgery, Hiatal hernia repair HEENT: Tonsil/Adenoidectomy - Present Medications Home Medications: Ambulatory Orders Medication Instructions Recorded Confirmed Loratadine 10 mg PO DAILY 05/17/18 09/16/21 Lisinopril [Zestril] 5 mg PO DAILY 03/14/21 09/16/21 Fluticasone [Flonase] 1 sprays BOBO BID PRN #1 bottle 06/01/21 09/16/21 Oxymetazoline HCl [Afrin] 1 spray NS BID PRN #15 ml 06/01/21 09/16/21 - Allergies Allergies/Adverse Reactions: Allergies Allergy/AdvReac Type Severity Reaction Status Date / Time Sulfa (Sulfonamide Allergy Unknown Rash Verified 10/05/21 12:48 Antibiotics) promethazine HCl * Allergy i get Verified 10/05/21 12:48 [From Phenergan] maudlin codeine AdvReac Unknown Hallucinati Verified 10/05/21 12:48 ons erythromycin base AdvReac Unknown Nausea Verified 10/05/21 12:48 [Erythromycin Base] tetracycline AdvReac Unknown Cramps Verified 10/05/21 12:48 sulfisoxazole AdvReac Teeth pain Verified 10/05/21 12:48 [From Gantrisin] and urine green sulfisoxazole acetyl * AdvReac Unknown Verified 10/05/21 12:48 [From Gantrisin] - Social History Does the pt smoke?: No Smoking Status: Never smoker Does the pt drink ETOH?: No Does the pt have substance abuse?: No - Immunizations Immunizations are current?: No - POLST Patient has POLST: No PD ED PE NORMAL - Vitals Vital signs reviewed: Yes - General General: Alert and oriented X 3, No acute distress - HEENT HEENT: PERRL, EOMI - Neck Neck: Supple, no meningeal sign, C-Spine cleared by NEXUS criteria - Extremities Extremities: No calf tenderness / cord, Other (Right second finger is nontender with full range of motion, elbow mildly tender over the olecranon and just above it posteriorly with full range of motion but a bruise there.) - Neuro Neuro: Alert and oriented X 3, rolling chair pusher 2-12 intact, No motor deficit, No sensory deficit, Normal speech Eye Opening: Spontaneous Motor: Obeys Commands Verbal: Oriented GCS Score: 15 Results - Vitals Vitals: Vital Signs - 24 hr 10/05/21 10/05/21 12:43 13:50 Temperature 37.1 C 36.7 C Heart Rate 88 71 Respiratory 16 16 Rate Blood Pressure 153/96 H 136/87 H O2 Saturation 95 96 Oxygen O2 Source Room air - Rads (name of study) CT of the head, cervical spine and left elbow x-rays Radiology: EMP read contemporaneously (Age-related and degenerative findings without trauma) PD MEDICAL DECISION MAKING - ED course ED course: 80-year-old woman who was feeling wobbly today because of inadvertently eating MSG last night and this is not unusual for her but now she fell and hit her head and has a head injury and a left elbow contusion without radiologic abnormalities related to the trauma and she was relieved. Departure - Departure Disposition: 01 Home, Self Care Clinical Impression: Injury of head and neck Qualifiers: Encounter type: initial encounter Qualified Code(s): S09.90XA - Unspecified injury of head, initial encounter Contusion Qualifiers: Encounter type: initial encounter Contusion area: elbow Laterality: left Qualified Code(s): S50.02XA - Contusion of left elbow, initial encounter Condition: Good Record reviewed to determine appropriate education?: Yes Instructions: ED Head Injury Closed Comments: Call your doctor to arrange a follow-up appointment, make the next available appointment. In the interim, return anytime if worse or if new symptoms dev elop. Discharge Date/Time: 10/05/21 13:52
--- NOTE | 2021-10-05 13:40 | CT Report ---
PROCEDURE: CERVICAL SPINE WO INDICATIONS: head injury TECHNIQUE: Noncontrast 3 mm thick sections acquired from the skull base to the T4 level. Sagittal and coronal r eformats were then constructed. For radiation dose reduction, the following was used: automated exp osure control, adjustment of mA and/or kV according to patient size. COMPARISON: None. FINDINGS: Image quality: Excellent. Bones: No fractures or dislocations. Visualized superior ribs are intact. Cervical spondylitic cary nge, with canal stenosis, likely moderate, at C4-C5. Multilevel uncovertebral joint osteophytes with foraminal narrowing. Soft tissues: Prevertebral soft tissues are normal in thickness. No paravertebral hematomas. No ap ical pneumothoraces. IMPRESSION: 1. No evidence acute cervical fracture or dislocation. 2. Cervical spondylitic change. Findings include canal stenosis at C4-C5 and multilevel bony foramina l narrowing. Reviewed by: Kyle Morales MD on 10/05/2021 12:39 PM [facility] Approved by: Kyle Morales MD on 10/05/2021 12:39 PM [facility] Station ID: [id number]
--- NOTE | 2021-10-05 13:42 | CT Report ---
PROCEDURE: HEAD WO INDICATIONS: head injury TECHNIQUE: Noncontrast 4.5 mm thick angled axial sections acquired from the foramen magnum to the vertex. For r adiation dose reduction, the following was used: automated exposure control, adjustment of mA and/or kV according to patient size. COMPARISON: 12/03/2012. FINDINGS: Image quality: Excellent. CSF spaces: Basal cisterns are patent. No extra-axial fluid collections. Ventricles are normal in size and shape. Brain: No midline shift. No intracranial masses or hemorrhage. Correa-white matter interface is norm al. Age-related volume loss and moderate small vessel ischemic change. Skull and face: Calvarium and visualized facial bones are intact, without suspicious lesions. Sinuses: Visualized sinuses and mastoids are clear. IMPRESSION: 1. No evidence of acute intracranial process. No evidence of significant intracranial sequelae of acu te trauma. 2. Age-related volume loss and moderate small vessel ischemic change. Reviewed by: Kyle Morales MD on 10/05/2021 12:41 PM [facility] Approved by: Kyle Morales MD on 10/05/2021 12:41 PM [facility] Station ID: [id number]
--- NOTE | 2021-10-05 13:43 | XRAY Report ---
PROCEDURE: Elbow 3 View LT INDICATIONS: elbow injury TECHNIQUE: 3 views of the elbow were acquired. COMPARISON: None FINDINGS: Bones: No fractures or dislocations. No suspicious bony lesions. Soft tissues: No elbow joint effusion. No suspicious soft tissue calcifications. IMPRESSION: No evidence acute bony abnormality of the left elbow. If clinical suspicion and/or symptoms persist, further assessment with repeat plain films or advanced imaging (e.g., CT, MRI, or bone scan) may be helpful for further assessment. Reviewed by: Kyle Morales MD on 10/05/2021 12:41 PM [facility] Approved by: Kyle Morales MD on 10/05/2021 12:41 PM [facility] Station ID: [id number]
[2021-10-05 13:51] VITALS: BP 136/87
== END 2021-10-05 13:52 | disposition home or self-care (01) ==
LOC: ED 12:33
DX: S09.90XA Unspecified injury of head, initial encounter (principal); S50.02XA Contusion of left elbow, initial encounter; W10.9XXA Fall (on) (from) unspecified stairs and steps, initial encounter; Y93.89 Activity, other specified
CPT/HCPCS: 99282; 99284

== ENCOUNTER 2022-12-15 17:45 | Outpatient (CLI) | payer MEDICARE | END 2022-12-15 18:00 | disposition home or self-care (01) | LOC: LAB.N 17:45 | PROVIDERS: ATTEND Nurse Practitioner | DX: Z53.9 Procedure and treatment not carried out, unspecified reason (principal) | CPT/HCPCS: 36415; 80053; 83880; 85025 ==